=== PATIENT | female | born 1990 | race Caucasian/White ===

== ENCOUNTER 2021-05-03 23:09 | Emergency (ER) | payer SELFPAY ==
[2021-05-04 00:13] LABS: BILIRUBIN Negative (Negative); BLOOD Negative (Negative); CLARITY Clear (Clear); COLOR Yellow (Yellow); GLUCOSE Negative (Negative); KETONE Negative (Negative); LEUKO ESTERASE Negative (Negative); NITRITE Negative (Negative); PH 6.5 (4.5-8.0)
[2021-05-04 00:23] LABS: BACTERIA 1+; EPITHELIAL CELLS 51-100
[2021-05-04] MEDS ORDERED: TESSALON PERLE100 MG PO (03:41)
[2021-05-04] MEDS ORDERED: ULTRAM50 MG PO (03:41)
== END 2021-05-04 04:02 | disposition home or self-care (01) ==
LOC: ED 23:09
PROVIDERS: Emergency Medicine
DX: J40 Bronchitis, not specified as acute or chronic (principal); F17.200 Nicotine dependence, unspecified, uncomplicated

== ENCOUNTER 2023-10-27 13:18 | Emergency (ER) | payer SELFPAY ==
[~2023-10-27] VITALS: Ht 162.5 cm; Wt 79.8 kg
[~2023-10-27 13:18] MED LIST: TESSALON PERLE100 MG PO; ULTRAM50 MG PO
[2023-10-27] MEDS ORDERED: WOMEN'S MULTI200 MCG PO (13:58)
[2023-10-27] MEDS ORDERED: NAPROSYN500 MG PO (14:47)
== END 2023-10-27 15:08 | disposition home or self-care (01) ==
LOC: ED 13:18
DX: S66.911A Strain of unspecified muscle, fascia and tendon at wrist and hand level, right hand, initial encounter (principal); F17.200 Nicotine dependence, unspecified, uncomplicated; X58.XXXA Exposure to other specified factors, initial encounter; Y93.89 Activity, other specified; Y92.89 Other specified places as the place of occurrence of the external cause; Y99.0 Civilian activity done for income or pay